=== PATIENT | female | born 1970 | race Caucasian/White ===

== ENCOUNTER 2019-10-14 18:40 | Emergency (ER) | payer OTHER ==
[~2019-10-14] VITALS: Ht 160 cm; Wt 109.1 kg
[2019-10-14] MEDS ORDERED: NEURONTIN600 MG PO (18:56)
[2019-10-14] MEDS ORDERED: PROAIR HFA8.5 G1 INH (18:56)
[2019-10-14 18:58] VITALS: Ht 160 cm; Wt 109.1 kg
[2019-10-14] MEDS ORDERED: NOVOLIN 70/30 110 ML (19:04)
[2019-10-14] MEDS ORDERED: LITHIUM CARBON150 MG (19:05)
[2019-10-14] MEDS ORDERED: NEURONTIN800 MG PO (19:05)
[2019-10-14] MEDS ORDERED: LISINOPRIL10 MG PO (19:06)
[2019-10-14] MEDS ORDERED: BAYER CHEWABLE81 MG PO (19:06)
[2019-10-14] MEDS ORDERED: PROVENTIL/2.5 MG/3 M INH (19:06)
[2019-10-14] MEDS ORDERED: NOVOLIN 70/30 110 ML SC (19:35)
[2019-10-14 19:45] LABS: GLUCOSE 1000 mg/dL (NEGATIVE); KETONE NEGATIVE (NEGATIVE); NITRITE NEGATIVE (NEGATIVE); SPECIFIC GRAVITY 1.005 (1.005-1.020); UROBILINOGEN NORMAL (NORMAL)
[2019-10-14 19:46] LABS: BILIRUBIN NEGATIVE (NEGATIVE)
[2019-10-14 20:01] LABS: UDS - AMPHET NEGATIVE QUAL (NEGATIVE); UDS - BARB NEGATIVE QUAL (NEGATIVE); UDS - BENZO NEGATIVE QUAL (NEGATIVE); UDS - COCAINE NEGATIVE QUAL (NEGATIVE); UDS - OPIATE NEGATIVE QUAL (NEGATIVE); UDS - PCP NEGATIVE QUAL (NEGATIVE); UDS - THC NEGATIVE QUAL (NEGATIVE)
[2019-10-14 20:24] LABS: BASOPHILS 0.2 % (0-2); EOSINOPHILS 4.2 % (0-7); HEMATOCRIT 44.5 % (36.0-48.0); HEMOGLOBIN 13.7 g/dL (12-16); IMMATURE GRANULOCYTES 0.1 % (0-5); LYMPHOCYTES 30.5 % (15-50); MCHC 30.8 g/dL (31.0-37.0); MCV 94.3 fL (80.0-100.0); MEAN PLATELET VOLUME 9.2 fL (7.4-10.4); MONOCYTES 5.5 % (2-11); NEUTROPHILS 59.5 % (40-80); PLATELET COUNT 269 10x3/uL (130-400); RBC 4.72 10x6/uL (4.00-5.40); RDW 13.4 % (11.5-14.5); WBC 8.7 10x3/uL (4.8-10.8)
[2019-10-14 20:48] LABS: ALBUMIN 3.3 g/dL (3.4-5.0); ANION GAP 10.2 mmol/L (8-16); BILIRUBIN - TOTAL 0.26 mg/dL (0.2-1.3); CALCIUM 8.7 mg/dL (8.5-10.1); CARBON DIOXIDE 29.4 mmol/L (21.0-32.0); CREATININE - SERUM 0.9 mg/dL (0.6-1.3); POTASSIUM - SERUM 4.6 mmol/L (3.5-5.1); PROTEIN - SERUM 6.5 g/dL (6.4-8.2); THYROID STIMULATING HORMONE 1.56 uIU/mL (0.36-3.74)
[2019-10-14 21:23] VITALS: BP 143/82
== END 2019-10-14 21:23 | disposition home or self-care (01) ==
LOC: EDBD 18:40 → D.ER 18:40
PROVIDERS: Family Medicine
DX: E11.40 Type 2 diabetes mellitus with diabetic neuropathy, unspecified (principal); J45.909 Unspecified asthma, uncomplicated; M79.671 Pain in right foot; Z79.4 Long term (current) use of insulin